=== PATIENT | female | born 1995 | race Caucasian/White ===

== ENCOUNTER 2017-01-03 17:38 | Emergency (ER) | payer BC, SELFPAY ==
[~2017-01-03 17:38] MED LIST: Iopamidol 370 76% 100 ML VIAL ONE; Sodium Chloride 0.9% 1,000 ML BAG ONE; Sodium Chloride 0.9% 100 ML BAG ONE
[2017-01-03 18:01] LABS: Bilirubin Negative (Negative); Blood, Urine Negative (Negative); Clarity Clear (Clear); Glucose, Urine (Dipstick) Negative (Negative); Leukocyte Negative (Negative); Nitrite Negative (Negative); Protein, Urine (Dipstick) Negative (Neg-Trace); Specific Gravity, Urine 1.015 (1.005-1.030); Urobilinogen 0.2 mg/dL (0.2-1.0); pH, Urine 7.5 (5.0-9.0)
[2017-01-03 18:02] LABS: Pregnancy Test - Urine (BHCG) Negative (Negative)
[2017-01-03 18:03] LABS: Pregu Control Background? CLEAR/WHITE (CLR/WHITE); Pregu Control Bar Appear? YES (CONTROL BAR); Specific Gravity 1.015 (1.002-1.036)
[2017-01-03 18:19] LABS: Amphetamine Not Detected (NotDetected); Benzodiazepine Screen Detected (NotDetected); Cocaine Metabolite Screen Not Detected (NotDetected); Methamphetamine Not Detected (NotDetected); Opiate Screen Not Detected (NotDetected); Phencyclidine (PCP) Not Detected (NotDetected); THC/Cannabinoid Screen Not Detected (NotDetected)
[2017-01-03 18:20] LABS: Barbiturates Screen Not Detected (NotDetected); Medtox Control Line Valid? VALID (VALID); Methadone Not Detected (NotDetected); Oxycodone Screen Not Detected (NotDetected); Tricyclic Screen Not Detected (NotDetected)
[2017-01-03] MEDS ORDERED: Ketorolac Tromethamine 30 MG/ML VIAL ONE (18:21)
[2017-01-03] MEDS ORDERED: Ondansetron HCl/PF 4 MG/2 ML Vial ONE (18:21)
[2017-01-03 18:26] LABS: #Basophils 0.1 thou/uL (0.0-0.2); #Eosinphils 0.1 thou/uL (0.0-0.7); #Lymphocytes 1.8 thou/uL (1.20-3.40); #Monocytes 0.6 thou/uL (0.11-0.59); #Neutrophils 5.9 thou/uL (1.40-6.50); %Basophils 0.9 % (0.0-1.0); %Eosinophils 0.8 % (0.0-10.0); %Lymphocytes 21.7 % (21.0-51.0); %Monocytes 6.9 % (0.0-10.0); %Neutrophils 69.7 % (42.0-75.0); Hemoglobin 13.9 g/dL (12.0-16.0); Mean Corpuscular Hemoglobin 29.1 pg (27.0-31.0); Mean Corpuscular Volume 88.2 fl (81.0-99.0); Mean Platelet Volume 7.1 fL (7.4-10.4); Platelet Count 240 thou/uL (130-400); RBC Distribution Width 11.7 % (11.5-14.5); Red Blood Cell (RBC) Count 4.78 mill/uL (4.20-5.40); White Blood Cell (WBC) Count 8.5 thou/uL (4.8-10.8)
[2017-01-03 18:42] LABS: Alcohol Less than 10 mg/dL (Less than 10); CRP (Inflammatory) Less than 0.50 mg/dL (= or < 0.5)
[2017-01-03 18:47] LABS: ALT (SGPT) 8 U/L (8-55); AST (SGOT) 13 U/L (5-34); Albumin 4.6 g/dL (3.5-5.0); Alkaline Phosphatase 44 U/L (40-150); Anion Gap 14 mmol/L (10-20); BUN (Urea Nitrogen) 6 mg/dL (7.0-18.7); Bilirubin, Total 0.7 mg/dL (0.2-1.2); Calc. Creatinine Clearance 0 mL/min (70-130); Calcium 9.7 mg/dL (7.8-10.44); Carbon Dioxide 25 mmol/L (22-29); Chloride 105 mmol/L (98-107); Estimated GFR-MDRD Greater than 90; Globulin 3.2 g/dL (2.4-3.5); Glucose 85 mg/dL (70-105); Lipase 27 U/L (8-78); Potassium 3.4 mmol/L (3.5-5.1); Protein, Total 7.8 g/dL (6.0-8.3); Sodium 141 mmol/L (136-145)
[2017-01-03] MEDS ORDERED: Metoclopramide HCl 10 MG/2 ML VIAL ONE (18:49)
[2017-01-03] MEDS ORDERED: cefTRIAXone\\ROCEPHIN 1 GM VIAL ONE (20:05)
--- NOTE | 2017-01-03 23:15 | CT ---
CT ABDOMEN WITH IV CONTRAST CT PELVIS WITH IV CONTRAST 01/03/17 HISTORY: Nausea and vomiting as well as back and abdominal pain for four days. COMPARISON: None available. FINDINGS: The lung bases, liver, spleen, pancreas, bilateral adrenal glands, kidneys, abdominal aorta and part ially distended urinary bladder demonstrate a normal CT appearance. A T-shaped intrauterine contraceptive device is noted in place. The appendix is visualized and normal in caliber. A 1.3 cm low density structure is seen in the righ t adnexal region which may represent a dominant follicle within the right ovary. A 1.7 cm low density structure is seen within the lower right pelvis which appears to be in the gail on of the superior aspect of the vagina on the right, and this may represent a Darren's duct cyst. Urethral diverticulum is a possibility as well. IMPRESSION: 1. No acute findings are seen in the abdomen or pelvis. 2. Cystic lesion superior aspect of the vagina which is also in a periurethral location near th e base of the urinary bladder. This may represent a Darren's duct cyst versus a urethral diverticul um. 3. No CT evidence of appendicitis. 4. Moderate amount of retained fecal material seen within the ascending and transverse colon. POS: [facility]
== END 2017-01-03 20:35 | disposition home or self-care (01) ==
LOC: MADERS 17:38
DX: N36.1 Urethral diverticulum (principal); M54.5 Low back pain
CPT/HCPCS: 74177; 80053; 80306; 80307; 81003; 81025; 83690; 85025; 85652; 86140; 96361; 96365; 96375; J0696; J1885; J2270; J2405; J2765; J7050